=== PATIENT | male | born 1960 | race Caucasian/White ===

== ENCOUNTER 2021-08-02 22:02 | Emergency (ER) | payer SELFPAY ==
[2021-08-02] VITALS (11 sets, daily range): BP systolic 94–109; BP diastolic 62–78; PULSE 75–96; RESP 18; TEMP 36.8; O2SAT 95–99
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
[2021-08-02] MEDS: TETANUS,DIPHTHERIA,AC PERTUSSIS ADULT (0.5 ML) BOOSTRIX IM (23:22)
[2021-08-02] MEDS: ACETAMINOPHEN 325 MG TABLET 650 MG PO (23:22)
[2021-08-03 00:01] VITALS: BP 117/80; RESP 16
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
[2021-08-03] MEDS: MORPHINE SULFATE (*CRX) 4 MG/ML INJ IV PUSH (04:12)
[2021-08-03 04:16] VITALS: BP 110/84; PULSE 74; RESP 16; O2SAT 98
== END 2021-08-03 04:15 | disposition short-term general hospital (02) ==
PROVIDERS: Emergency Provider Emergency Medicine
DX: S06.6X0A Traumatic subarachnoid hemorrhage without loss of consciousness, initial encounter (principal); S00.12XA Contusion of left eyelid and periocular area, initial encounter; S22.41XA Multiple fractures of ribs, right side, initial encounter for closed fracture; S80.212A Abrasion, left knee, initial encounter; S80.211A Abrasion, right knee, initial encounter; S00.81XA Abrasion of other part of head, initial encounter; H11.32 Conjunctival hemorrhage, left eye; Z23 Encounter for immunization; F17.200 Nicotine dependence, unspecified, uncomplicated; Y04.2XXA Assault by strike against or bumped into by another person, initial encounter
CPT/HCPCS: 70450; 70486; 71101; 90471; 90715; 96374; 99285; A9270; J2270

== ENCOUNTER 2022-09-30 15:14 | Outpatient (CLI) | payer OTHER, SELFPAY ==
[2022-09-30 16:09] LABS: Hematocrit 41.5 % (42.0-52.0); Hemoglobin 14.3 g/dL (14.0-18.0); Mean Corpuscular HGB Conc 34.5 g/dl (32-36); Mean Corpuscular Hemoglobin 36.8 pg (26-34); Mean Corpuscular Volume 106.7 fl (80-100); Mean Platelet Volume 10.1 fl (7.4-10.4); Platelet Count Result 137 k/mm3 (150-375); Red Blood Count 3.89 M/mm3 (4.6-6.20); Red Cell Distribution Width 13.1 % (11.5-14.5); White Blood Count 4.9 K/mm3 (4.5-10.0)
[2022-09-30 16:28] LABS: INR 0.9; Prothrombin Time 12.5 Seconds (11.1-14.7)
[2022-09-30 16:29] LABS: Alanine Aminotransferase 46 U/L (6-50); Albumin Level 4.1 g/dL (3.5-5.1); Alkaline Phosphatase 74 U/L (38-126); Amylase 59 U/L (30-110); Anion Gap 0 mmol/L (8-16); Aspartate Amino Transferase 60 U/L (17-59); Bilirubin,Total 0.5 mg/dL (0.2-1.3); Blood Urea Nitrogen 14 mg/dL (9-20); Calcium 8.4 mg/dL (8.4-10.2); Carbon Dioxide 29 mmol/L (22-30); Chloride 107 mmol/L (98-107); Estimated Glomerular Filt Rate > 60; Glucose 85 mg/dL (65-110); Potassium 3.5 mmol/L (3.4-5.0); Sodium 136 mmol/L (137-145)
[2022-09-30 16:48] LABS: Iron 192 ug/dL (49-181)
[2022-09-30 16:59] LABS: Percent Iron Saturation 57 % (20-50)
[2022-09-30 17:16] LABS: Hepatitis B Surface Antigen Negative (Negative)
[2022-09-30 17:22] LABS: HAV RESULT Negative (Negative); Hepatitis B Core IgM Result Negative (Negative)
[2022-09-30 17:33] LABS: Hepatitis B Surface Anti Res Negative; Hepatitis C Virus Antibody Negative (Negative)
[2022-10-02 18:47] LABS: Ceruloplasmin 27 mg/dL (18-36)
[2022-10-03 05:26] LABS: Anti Nuclear Antibody Pattern Nuclear, Nucleolar
[2022-10-03 22:15] LABS: Actin Antibody (IgG) <20 U (<20)
[2022-10-04 02:25] LABS: Hepatitis A Antibody Total Reactive (Nonreactive)
[2022-10-05 15:32] LABS: Alpha Fetoprotein Tumor Marker 3.3 ng/mL (<6.1)
[2022-10-06 00:38] LABS: ALT 36 U/L (9-46); Alpha-2-Macroglobulin 141 mg/dL (106-279); Apolipoprotein A1 202 mg/dL (94-176); Fibrosis Score 0.16; Fibrosis Stage F0; GGT 217 U/L (3-70); Haptoglobin 102 mg/dL (43-212); Necroinflammat Act Grade A0; Total Bilirubin 0.3 mg/dL (0.2-1.2)
== END 2022-09-30 15:15 | disposition home or self-care (01) ==
LOC: ANHLAB 15:16
PROVIDERS: Visit Provider Nurse Practitioner
DX: K86.81 Exocrine pancreatic insufficiency (principal); R63.4 Abnormal weight loss; K74.60 Unspecified cirrhosis of liver; R74.8 Abnormal levels of other serum enzymes
CPT/HCPCS: 36415; 80053; 80074; 81596; 82105; 82150; 82390; 82728; 83540; 83550; 85027; 85610; 86038; 86039; 86364; 86706; 86708

== ENCOUNTER 2022-10-14 06:43 | Outpatient (CLI) | payer OTHER, SELFPAY ==
--- NOTE | ~2022-10-14 | CT_ITS ---
CT of the Abdomen and Pelvis: Indication: Abnormal serum enzyme levels, weight loss Technique: 2.5 mm axial scans were obtained through the abdomen and pelvis following intravenous adm inistration of 100 cc of Omnipaque 350. Dose reduction technique was used on this scan by utilizing a utomated exposure control and iterative reconstruction technique. The dose-length product (DLP) was 2 65.03 mGy-cm. COMPARISON: 10/14/2008 Findings: Scans through the lung bases demonstrate small hiatal hernia. There is a 2.7 cm mass in the inferomedial right hepatic lobe with nodular peripheral enhancement, mo st suggestive of hemangioma, similar in size to prior exam. The spleen, pancreas, gallbladder, adrena ls and kidneys are within normal limits. There are atherosclerotic calcifications of the aorta. No l ymphadenopathy. No bowel obstruction or bowel wall thickening. There is no evidence to suggest acute appendicitis. Images through the pelvis were performed. Urinary bladder unremarkable. No pelvic mass seen. No ascit es. No ascites. Impression: 2.7 cm right hepatic lobe hemangioma, otherwise unremarkable exam. Reviewed, dictated and finalized at [facility]. Impression: 2.7 cm right hepatic lobe hemangioma, otherwise unremarkable exam.
== END 2022-10-14 06:44 | disposition home or self-care (01) ==
LOC: ANHIMG 06:48
PROVIDERS: PCP Internal Medicine; Visit Provider Nurse Practitioner
DX: R74.8 Abnormal levels of other serum enzymes (principal); R63.4 Abnormal weight loss; K86.81 Exocrine pancreatic insufficiency
CPT/HCPCS: 74177; Q9967

== ENCOUNTER 2022-11-17 01:06 | Day surgery (SDC) | payer OTHER, SELFPAY ==
[2022-11-07 13:52] VITALS: BMI 20.7
--- NOTE | 2022-11-14 15:57 | PM.HPGS ---
History of Present Illness History of Present Illness Consent: Risks, benefits, and alternatives have been discussed and questions answered. Patient agrees to proceed with procedure. Chief complaint: abnorm.weightloss,nausea,Exocrine pancreatic insuf Narrative: Ravi Ortez is a 62 year old male with complaints of postprandial diarrhea and blood in the stools along with 25 lb weight loss.? This prompted these labs and stools-> pancreatic elastase was low at 173 indicating moderate pancreatic insufficiency (recs reviewed). Celiac panel was normal (recs reviewed). CRP normal. t bili 0.6, alt 60, ast 122 alk phos 85 (recs reviewed). Positive IBD panel suggestive of crohn's disease. He reports that around 15 minutes after eating he will have urgent diarrhea with no associated abdominal pain.He will go greater than five times per day-denies nocturnal diarrhea. He has been having these symptoms for years but states now he will even have diarrhea prior to eating like first thing when he gets up in the AM. ? He states around 2 years ago he had his teeth pulled and lost 25 lb in that will do that 4 week time.? After getting his weight pulled and has not been able to gain the weight since then.? His weight stays anywhere currently between 145 and 150 lb.? He will report a small amount of bright red blood per rectum with wiping and this just a small amount.? He states he had this around 15 years ago and had a rectal exam was stool stool he had extreme hemorrhoids.? He will have some rectal pain if he is out working in the [employer] and lifting heavy but otherwise he denies any rectal pain.? He reports dry heaves every morning even without eating and then sometimes will cough up phlegm Review of Systems Review of Systems: All systems reviewed & are unremarkable except as noted in HPI and below PMFSH Past Medical History Medical History Abnormal inflammatory bowel disease panel Bright red blood per rectum Chronic alcohol use Elevated liver enzymes Exocrine pancreatic insufficiency Nausea No active medical problems Postprandial diarrhea Tobacco abuse Weight loss Social History Social History Years smoked: 5 Smoking status: Current every day smoker Tobacco type: cigars Alcohol intake: current Drinks per week: 28 Substance use: never Living arrangements: alone Meds Home Medications and Allergies Home Medications Medication Instructions Recorded Confirmed Type fufufb-umpxebjk-swtfcwd See Rx Instructions PO .COMPLEX 10/10/22 11/17/22 Rx 40,000-126,000-168,000 unit #240 caps capsule, delay rel (Zenpep) rnuqyrkljsiq-rxwpctgn-izehyu 1 tablet PO DAILY 11/07/22 11/17/22 History tablet (Multivitamin 50 Plus tablet) Allergies Allergy/AdvReac Type Severity Reaction Status Date / Time No Known Allergies Allergy Mild Verified 11/17/22 12:35 Exam Resp: Auscultation: clear to auscultation bilaterally Cardio: Rate: regular rate Rhythm: regular rhythm GI: GI Palp: Yes Soft to palpation and No Tenderness to palpation present (GI) Assessment and Plan Assessment and plan (1) Weight loss: Code(s): R63.4 - Abnormal weight loss Status: Acute Assessment and Plan: EGD with possible biopsy or dilatation or cautery. (2) Postprandial diarrhea: Code(s): K52.9 - Noninfective gastroenteritis and colitis, unspecified Status: Acute Assessment and Plan: Colonoscopy with possible biopsy or polypectomy or cautery or injection of substances.
[2022-11-17 12:37] VITALS: BP 122/84; PULSE 72; RESP 16; TEMP 36.3; O2SAT 100
[2022-11-17] MEDS: LACTATED RINGERS 1,000 ML 150 ML IV CONT (12:46)
--- NOTE | 2022-11-17 13:07 | WPDANESEPPF ---
Anes - Initial Pre Proc Eval Procedure: Operation Date: 11/17/22 13:30 Proposed Procedures p Esophagogastroduodenoscopy & Colonoscopy - Steve Webb MD Date/Time: 11/17/22 13:07 Surgeon: Steve Webb MD Pre Op Diagnosis: abnorm.weightloss,nausea,Exocrine pancreatic insuf Patient Data Age: 62 Gender: M Height: 1.8 m Weight: 60 kg Last Vital Signs Temp 97.3 F L 11/17/22 12:37 Pulse 72 11/17/22 12:37 Resp 16 11/17/22 12:37 BP 122/84 11/17/22 12:37 Pulse Ox 100 11/17/22 12:37 O2 Del Method Room Air 11/17/22 12:37 Allergies Allergy/AdvReac Type Severity Reaction Status Date / Time No Known Allergies Allergy Mild Verified 11/17/22 12:35 Home Medications Medication Instructions Recorded Confirmed Type sjnalp-nvfjetjg-brokzqi See Rx Instructions PO .COMPLEX 10/10/22 11/17/22 Rx 40,000-126,000-168,000 unit #240 caps capsule, delay rel (Zenpep) ingxuxuvjwvg-xydfzqph-lysfma 1 tablet PO DAILY 11/07/22 11/17/22 History tablet (Multivitamin 50 Plus tablet) Patient hx anesthesia problems: none Family hx anesthesia problems: none Results Review: All pre-operative results and documents have been reviewed as part of the pre-operative evaluation. [facility] Past Medical History Medical History Abnormal inflammatory bowel disease panel Bright red blood per rectum Chronic alcohol use Elevated liver enzymes Exocrine pancreatic insufficiency Nausea No active medical problems Postprandial diarrhea Tobacco abuse Weight loss Social History Social History Years smoked: 5 Smoking status: Current every day smoker Tobacco type: cigars Alcohol intake: current Drinks per week: 28 Substance use: never Living arrangements: alone Anes - Eval Final PreProcedure Day of Procedure 11/17/22 13:07 Patient weight: normal Heart: regular rate and rhythm Lungs: clear to auscultation Airway: Mallampati scale class II Neurological: alert and oriented Last oral intake: >/= 8 hours ASA classification: II Emergent: no Anesthetic plan: proceed Anesthesia type and monitoring: general GIVS and standard monitoring Results Review: All pre-operative results and documents have been reviewed as part of the pre-operative evaluation. Informed Consent: The patient's anesthetic plan and its attendant risks and benefits were discussed with the patient/family/POA. Questions were solicited and answers provided to the satisfaction of the patient/family/POA.
--- NOTE | 2022-11-17 13:45 | SUR.OPER ---
EGD ended at 1340, colonoscopy began at 1347.
[2022-11-17] MEDS: SIMETHICONE ORAL SUSPENSION 20 MG/0.3 ML 30 ML BOTTLE 0.6 ML IRRIGATION (13:50)
[2022-11-17 13:58] VITALS: BP 99/70; PULSE 69; RESP 25; O2SAT 98
[2022-11-17 14:08] VITALS: BP 114/87; PULSE 76; RESP 20; O2SAT 100
[2022-11-17 14:18] VITALS: BP 118/90; PULSE 65; RESP 24; O2SAT 99
== END 2022-11-17 14:29 | disposition home or self-care (01) ==
PROVIDERS: PCP Internal Medicine; Visit Provider Internal Medicine Gastroenterology
PROC: 0DJ08ZZ Inspection of Upper Intestinal Tract, Via Natural or Artificial Opening Endoscopic (ICD-10-PCS; CPT 43235; principal; 2022-11-17 13:30)
DX: R63.4 Abnormal weight loss (principal); K52.9 Noninfective gastroenteritis and colitis, unspecified; K44.9 Diaphragmatic hernia without obstruction or gangrene; K29.70 Gastritis, unspecified, without bleeding; D12.2 Benign neoplasm of ascending colon; F17.210 Nicotine dependence, cigarettes, uncomplicated
CPT/HCPCS: 43239; 45380; 87081; 88305; J2704; J7120

== ENCOUNTER 2022-11-25 15:43 | Outpatient (CLI) | payer OTHER, SELFPAY ==
[2022-11-25 16:34] LABS: Lipase 190 U/L (23-300)
[2022-11-29 22:03] LABS: LKM 1 Antibody <=20.0 U (<=20.0)
[2022-12-01 11:26] LABS: Mitochondrial (M2) Ab (IgG) <=20.0 U (<=20.0)
== END 2022-11-25 15:44 | disposition home or self-care (01) ==
LOC: ANHLAB 15:44
PROVIDERS: PCP Internal Medicine; Visit Provider Nurse Practitioner
DX: K86.81 Exocrine pancreatic insufficiency (principal); R63.4 Abnormal weight loss; R74.8 Abnormal levels of other serum enzymes
CPT/HCPCS: 36415; 82104; 83520; 83690; 86376

== ENCOUNTER 2023-05-26 15:51 | Outpatient (CLI) | payer OTHER, SELFPAY ==
[2023-05-26 16:44] LABS: Hematocrit 41.8 % (42.0-52.0); Hemoglobin 14.5 g/dL (14.0-18.0); Mean Corpuscular HGB Conc 34.7 g/dl (32-36); Mean Corpuscular Hemoglobin 35.6 pg (26-34); Mean Corpuscular Volume 102.7 fl (80-100); Mean Platelet Volume 10.4 fl (7.4-10.4); Platelet Count Result 138 k/mm3 (150-375); Red Blood Count 4.07 M/mm3 (4.6-6.20); Red Cell Distribution Width 13.7 % (11.5-14.5); White Blood Count 5.3 K/mm3 (4.5-10.0)
[2023-05-26 16:52] LABS: INR 0.9; Prothrombin Time 12.5 Seconds (11.1-14.7)
[2023-05-26 16:54] LABS: Alanine Aminotransferase 117 U/L (6-50); Alkaline Phosphatase 77 U/L (38-126); Anion Gap 7 mmol/L (8-16); Aspartate Amino Transferase 117 U/L (17-59); Bilirubin,Total 0.7 mg/dL (0.2-1.3); Blood Urea Nitrogen 11 mg/dL (9-20); Carbon Dioxide 26 mmol/L (22-30); Chloride 108 mmol/L (98-107); Estimated Glomerular Filt Rate > 60; Glucose 105 mg/dL (65-110); Potassium 3.5 mmol/L (3.4-5.0); Sodium 141 mmol/L (137-145)
== END 2023-05-26 15:52 | disposition home or self-care (01) ==
LOC: ANHLAB 15:52
PROVIDERS: PCP Internal Medicine; Visit Provider Nurse Practitioner
DX: R74.8 Abnormal levels of other serum enzymes (principal); F10.90 Alcohol use, unspecified, uncomplicated; K86.81 Exocrine pancreatic insufficiency
CPT/HCPCS: 36415; 80053; 85027; 85610

== ENCOUNTER 2023-05-28 17:11 | Outpatient (CLI) | payer OTHER, SELFPAY ==
[2023-06-03 22:42] LABS: Pancreatic Elastase, Stool >500 mcg/g
== END 2023-05-28 17:12 | disposition home or self-care (01) ==
LOC: ANHLAB 17:13
PROVIDERS: PCP Internal Medicine; Visit Provider Nurse Practitioner
DX: K86.81 Exocrine pancreatic insufficiency (principal)
CPT/HCPCS: 82653

== ENCOUNTER 2023-06-10 08:35 | Outpatient (CLI) | payer OTHER, SELFPAY ==
--- NOTE | ~2023-06-10 | US_ITS ---
Limited Abdominal Sonogram: Real-time sonographic imaging of the right upper quadrant was performed. Clinical History: Abnormal LFTs Findings: The liver appears normal with no evidence of bile duct dilatation. 1.5 cm hyperechoic mass noted in the right hepatic lobe. Main portal vein demonstrates normal direction of flow. The gallbla dder is well distended, and appears normal with no evidence of gallstone or wall thickening. The comm on bile duct measures 6 mm. The visualized pancreas, aorta, and IVC are unremarkable. Impression: 1.5 cm hyperechoic area noted hepatic lobe. This is consistent with hemangioma, and correlates with s imilar lesion seen on prior CT dated 10/14/2022. Reviewed, dictated and finalized at location . Impression: 1.5 cm hyperechoic area noted hepatic lobe. This is consistent with hemangioma, and correlates with similar lesion seen on prior CT dated 10/14/2022.
== END 2023-06-10 08:36 | disposition home or self-care (01) ==
LOC: ANHIMG 08:37
PROVIDERS: PCP Internal Medicine; Visit Provider Nurse Practitioner
DX: R74.8 Abnormal levels of other serum enzymes (principal); D69.6 Thrombocytopenia, unspecified; F10.90 Alcohol use, unspecified, uncomplicated
CPT/HCPCS: 76705

== ENCOUNTER 2023-12-08 11:04 | Outpatient (CLI) | payer OTHER, SELFPAY ==
[2023-12-08 11:45] LABS: Hematocrit 47.7 % (42.0-52.0); Hemoglobin 16.6 g/dL (14.0-18.0); Immature Platelet Fraction Pct 5.3 % (0.9-11.2); Mean Corpuscular HGB Conc 34.8 g/dl (32-36); Mean Corpuscular Hemoglobin 37.1 pg (26-34); Mean Corpuscular Volume 106.7 fl (80-100); Mean Platelet Volume 10.4 fl (7.4-10.4); Platelet Count Result 125 k/mm3 (150-375); Red Blood Count 4.47 M/mm3 (4.6-6.20); Red Cell Distribution Width 13.8 % (11.5-14.5); White Blood Count 5.5 K/mm3 (4.5-10.0)
[2023-12-08 11:58] LABS: INR 0.9; Prothrombin Time 12.7 Seconds (11.1-14.7)
[2023-12-08 12:08] LABS: Alanine Aminotransferase 39 U/L (6-50); Albumin Level 4.5 g/dL (3.5-5.1); Alkaline Phosphatase 77 U/L (38-126); Anion Gap 7 mmol/L (4-12); Aspartate Amino Transferase 67 U/L (17-59); Bilirubin,Total 0.8 mg/dL (0.2-1.3); Blood Urea Nitrogen 14 mg/dL (9-20); Calcium 9.1 mg/dL (8.4-10.2); Carbon Dioxide 27 mmol/L (22-30); Chloride 105 mmol/L (98-107); Estimated Glomerular Filt Rate > 60; Glucose 87 mg/dL (65-110); Potassium 4.1 mmol/L (3.4-5.0); Sodium 139 mmol/L (137-145)
[2023-12-08 12:32] LABS: Iron 227 ug/dL (49-181); Percent Iron Saturation 75 % (20-50)
== END 2023-12-08 11:05 | disposition home or self-care (01) ==
LOC: ANHLAB 11:06
PROVIDERS: PCP Internal Medicine; Visit Provider Nurse Practitioner
DX: D69.6 Thrombocytopenia, unspecified (principal); K70.0 Alcoholic fatty liver; R79.0 Abnormal level of blood mineral
CPT/HCPCS: 36415; 80053; 82728; 83540; 83550; 85027; 85055; 85610

== ENCOUNTER 2024-01-11 09:02 | Outpatient (CLI) | payer OTHER, SELFPAY ==
--- NOTE | ~2024-01-11 | US_ITS ---
US abdomen limited INDICATION: Thrombocytopenia PROCEDURE: Realtime right upper abdominal ultrasound. COMPARISON: No prior studies for comparison. FINDINGS: The pancreas is normal without focal mass or pancreatic ductal dilation. Liver echotexture is increased, consistent with fatty infiltration. Previously identified hyperechoic liver mass not v isualized on the current study. There is normal directional flow in the portal vein. The gallbladder is normal without stones, gallbladder wall thickening or pericholecystic fluid. Comm on bile duct measures 4 mm. No sonographic Philip's sign. IMPRESSION: 1: Fatty infiltration of the liver. Reviewed, dictated and finalized at location [facility].
== END 2024-01-11 09:03 | disposition home or self-care (01) ==
LOC: ANHIMG 09:04
PROVIDERS: PCP Internal Medicine; Visit Provider Nurse Practitioner
DX: R79.89 Other specified abnormal findings of blood chemistry (principal); R79.0 Abnormal level of blood mineral; K70.0 Alcoholic fatty liver; D69.6 Thrombocytopenia, unspecified; D18.03 Hemangioma of intra-abdominal structures; K76.0 Fatty (change of) liver, not elsewhere classified
CPT/HCPCS: 76705